=== PATIENT | female | born 1970 | race Caucasian/White ===

== ENCOUNTER → 2016-10-19 | Outpatient (CLI) | payer BC ==
--- NOTE | 2016-10-19 10:19 | REPMRS ---
Patient History The patient states she has not had a clinical breast exam in over a year. Patient had first child at age 34. Family history of prostate cancer in father at age 50 or over, colorectal cancer in maternal grandfather, breast cancer in maternal grandmother at age 50 or over, and colorectal cancer in brother at age 50 or over. Pre-pectoral saline implants in both breasts, 2002. Digital Woman Screen Mammo: October 19, 2016 - Exam #: [id number] Bilateral CC and MLO view(s) were taken. Technologist: Nancie Velasquez, Technologist Prior study comparison: August 10, 2015, digital woman screen mammo performed at [facility] [facility]. July 28, 2014, digital woman screen mammo performed at [facility] [facility]. FINDINGS: There are scattered fibroglandular densities. Implant displaced and standard views were obtained. There has been no change in the appearance of the mammogram from the prior studies. There is a moderate amount of residual fibroglandular tissue of moderate density which is fairly symmetric. There is no interval development of dominant mass, architectural distortion, or clustered microcalcification suggestive of malignancy. Scattered lymph nodes are seen in the axillae. There are scattered, small, benign calcifications of doubtful clinical significance. The left breast implant is again noted to have ruptured and collapsed dating back to priors in 2009. No change in the right implant. No significant changes when compared with prior studies. ASSESSMENT: BI-RADS/ACR category 2 mammogram. Benign finding(s). Recommendation Routine screening mammogram in 1 year (for women over age 40). This mammogram was interpreted with the aid of an FDA-approved computer-aided dectection system. A. Negative x-ray reports should not delay biopsy if a dominant or clinically suspicious mass is present. B. Four to eight percent of cancers are not identified by mammography. C. Adenosis and dense breast may obscure an underlying neoplasm. Electronically Signed By: Juan Jose Salinas MD 10/19/16 3165
== END ==
LOC: M WHC 08:39
PROVIDERS: ATTEND Physician Assistant
DX: Z12.31 Encounter for screening mammogram for malignant neoplasm of breast (principal)